=== PATIENT | female | born 1990 | race Caucasian/White ===

== ENCOUNTER 2018-11-02 22:15 | Inpatient (IN) | payer OTHER ==
[2018-11-02] MEDS ORDERED: AMPICILLIN - 2 GM in SODIUM CHLORIDE 100 ML IVPB ONE (22:50)
[2018-11-02] MEDS ORDERED: OXYTOCIN 30 UNITS in 0.9% NS 30 UNIT/500 ML INFUS.BAG IVPB SCH (23:00)
[2018-11-02] MEDS ORDERED: DEXTROSE 5%-LACTATED RINGERS 1,000 ML IV SCH (23:00)
[2018-11-02] MEDS ORDERED: ELECTROLYTE-148 SOLN 1,000 ML IV SCH (23:00)
--- NOTE | 2018-11-02 23:02 | HP ---
Past Medical History - Primary Care Physician PCP:: Doug Almanza - Admission Chief Complaint: 39 weeks, rom, early labor, GBS positve in urine History of Present Illness: 27 yo f g 1 p0 39.4weeks by sono c/o rom at 930 pm today , has mild irregular contraction , no fever, no bleeding , nitrazine positve, cx 2 cm 80 vx -2 mr, fhr cat 1, irregular periods ,difficult pelvic exam , ptient has vginismus and narrow pelvic outlet History Source: Patient, Family Member Limitations to Obtaining History: Language Barrier - Past Medical History ...: 1 ...Para: 0 ... Weeks Gestation by Dates: 39.4 ...EDC by Dates: 11/04/18 ...EDC by Sono: 11/05/18 - Past Surgical History Hx Myomectomy: No Hx Transabdominal Cerclage: No - Smoking History Have you smoked in the past 12 months: No - Alcohol/Substance Use Hx Alcohol Use: No History of Substance Use: reports: None - Social History Usual Living Arrangement: Yes: With Spouse History of Recent Travel: No Home Medications - Allergies Allergies/Adverse Reactions: Allergies Allergy/AdvReac Type Severity Reaction Status Date / Time No Known Allergies Allergy Verified 11/02/18 22:49 - Home Medications Home Medications: Ambulatory Orders Ferrous Sulfate [Feosol] 325 mg PO DAILY 11/02/18 Vit No.129/Iron/Folic [ One Daily Tablet] 1 each PO DAILY 11/02 Review of Systems - Review of Systems Constitutional: reports: No Symptoms Eyes: reports: No Symptoms HENT: reports: No Symptoms Neck: reports: No Symptoms Cardiovascular: reports: No Symptoms Respiratory: reports: No Symptoms Gastrointestinal: reports: No Symptoms Genitourinary: reports: No Symptoms Breasts: reports: No Symptoms Reported Musculoskeletal: reports: No Symptoms Integumentary: reports: No Symptoms Neurological: reports: No Symptoms Endocrine: reports: No Symptoms Hematology/Lymphatic: reports: No Symptoms Psychiatric: reports: No Symptoms Physical Exam - Maternity Constitutional: Yes: Well Nourished, No Distress, Calm Eyes: Yes: WNL, Conjunctiva Clear, EOM Intact HENT: Yes: WNL, Atraumatic, Normocephalic Neck: Yes: WNL, Supple, Trachea Midline Cardiovascular: Yes: WNL, Regular Rate and Rhythm Breast(s): Yes: WNL - Abdominal Exam/OB Fundal Height: 38 Number of Fetuses: Single Presentation: Vertex Contractions: Yes Regularity: Irregular Intensity: Mild/Mod Monitor Mode: External Heart Rate Location: [facility] Category: I Accelerations: Non-Uniform Decelerations: None - Vaginal Exam/OB Vaginal Bleediing: No Speculum Exam: No Dilatation (cm): 2 cm Effacement (%): 80 Amniotic Membrane Status: Ruptured Nitrazine Test: Positive Amniotic Fluid: Yes: Clear Presentation: Vertex/Position Station: -2 - Physical Exam Musculoskeletal: Yes: WNL Extremities: Yes: WNL Edema: LLE: Trace, RLE: Trace Deep Tendon Reflex Grade: Normal +2 ...Motor Strength: WNL Psychiatric: Yes: WNL Hemorrhage Risk Assessment - Risk Factors Medium Risk Factors: Yes: None High Risk Factors: Yes: None Risk Score: 1 Risk Level: Medium Risk Problem List - Problems (1) with 39 completed weeks gestation Code(s): Z3A.39 - 39 WEEKS GESTATION OF (2) membrane rupture Code(s): XVY9437 - (3) Labor established Code(s): [id number] - Assessment/Plan admit fhm requesting epidural GBS prophylaxis has irregular contraction , pitocin risks and benefit discussed
[2018-11-02 23:03] VITALS: BMI 29.1
[2018-11-02] MEDS ORDERED: AMPICILLIN SODIUM 2 GM VIAL ONE (23:05)
[2018-11-02 23:13] LABS: BASO % 0.3 % (0-2.0); EOS % 0.2 % (0-4.5); HEMATOCRIT 34.4 % (32.4-45.2); HEMOGLOBIN 11.4 GM/dL (10.7-15.3); LYMPH % 8.9 % (8-40); MCH 28.6 pg (25.7-33.7); MEAN CELL VOLUME 86.6 fl (80-96); NEUT % 84.6 % (42.8-82.8); PLATELET COUNT 239 K/MM3 (134-434); RBC 3.98 M/mm3 (3.60-5.2); RDW 14.1 % (11.6-15.6)
[2018-11-02 23:21] LABS: INR 0.94 (0.83-1.09); PROTHROMBIN TIME (PATIENT) 11.1 SEC (9.7-13.0)
[2018-11-02 23:24] LABS: ACTIVATED PTT 25.2 SECONDS (25.2-36.5)
[2018-11-02 23:31] LABS: BLOOD UREA NITROGEN 6.3 mg/dL (7-18); CALCIUM 8.9 mg/dL (8.5-10.1); CREATININE 0.6 mg/dL (0.55-1.3); POTASSIUM 4.3 mmol/L (3.5-5.1)
[2018-11-02] MEDS ORDERED: NALOXONE HCL 0.4 MG/ML VIAL IVPUSH PRN (23:44)
[2018-11-02] MEDS ORDERED: FENTANYL/BUPIVACAINE/NS/PF - PCEA - 50 ML DISP.SYRIN EP SCH (23:45)
[2018-11-03] MEDS ORDERED: FENTANYL/BUPIVACAINE/NS/PF - PCEA - 50 ML DISP.SYRIN EP ONE (00:13)
[2018-11-03] MEDS ORDERED: LIDO 2%/EPI 1:200000 PRESRVFRE (20 ML SDVIAL) ONE ×2 (00:19→02:37)
[2018-11-03] MEDS ORDERED: CITRIC ACID/SODIUM CITRATE 30 ML UNIT-DOSE CUP PO ONE (02:28)
--- NOTE | 2018-11-03 02:28 | PN ---
Progress Note (short form) - Note Progress Note: cx 3 cm 80 vz -1, recurrent deep variable with contraction, btbv good , cat 2 tracing, advised c/c. risks discussed oxytocin never stated , lt side, o2. iv fluid Problem List - Problems (1) with 39 completed weeks gestation Code(s): Z3A.39 - 39 WEEKS GESTATION OF (2) membrane rupture Code(s): [id number] - (3) Labor established Code(s): [id number] -
[2018-11-03] MEDS ORDERED: KETOROLAC TROMETHAMINE 30 MG/1 ML VIAL ONE (02:58)
[2018-11-03] MEDS ORDERED: AMPICILLIN - 1 GM in SODIUM CHLORIDE 100 ML IVPB SCH (03:00)
[2018-11-03] MEDS ORDERED: ceFAZolin SODIUM 1 GM VIAL ONE (03:06)
[2018-11-03] MEDS ORDERED: MIDAZOLAM HCL 2 MG/2 ML SINGLE DOSE VIAL ONE (03:06)
[2018-11-03] MEDS ORDERED: SODIUM CHLORIDE 0.9% P/F 10 ML VIAL IJ ONE (03:06)
[2018-11-03] MEDS ORDERED: PROPOFOL 20 ML ONE ×2 (03:09→03:19)
[2018-11-03] MEDS ORDERED: WITCH HAZEL 50% (TUCKS) 40 PAD/JAR PAD TP PRN (03:43)
[2018-11-03] MEDS ORDERED: METHYLERGONOVINE MALEATE 0.2 MG/1 ML AMP IM PRN (03:43)
[2018-11-03] MEDS ORDERED: BENZOCAINE 20% 57 GM BOTTLE TP PRN (03:43)
[2018-11-03] MEDS ORDERED: diphenhydrAMINE HCL 25 MG CAPSULE (FP) PO PRN (03:43)
[2018-11-03] MEDS ORDERED: oxyCODONE HCL 5 MG TABLET PO PRN (03:43)
[2018-11-03] MEDS ORDERED: BENZOCAINE 28 GM HEMORRHOIDAL OINTMENT PR PRN (03:43)
[2018-11-03] MEDS ORDERED: OXYTOCIN 20 UNITS in 0.9% NS 20 UNIT/1,000 ML INFUS.BAG IV SCH (03:45)
--- NOTE | 2018-11-03 03:48 | OP ---
Operative Note - Note: Operative Date: 11/03/18 Pre-Operative Diagnosis: non reassuring FHR Operation: primary LST c/s Findings: live baby boy, rop, 10/29 Surgeon: Doug Almanza Parachute Rigger: Malachi Badillo Anesthesia: Epidural Specimens Removed: placenta Estimated Blood Loss (mls): 500 Drains & Tubes with Location: chamorro Blood Volume Replaced (mls): 0 Operative Report Dictated: Yes
[2018-11-03] MEDS ORDERED: ONDANSETRON 4 MG/2 ML VIAL IVPUSH PRN (04:04)
[2018-11-03] MEDS ORDERED: MEPERIDINE HCL 25 MG/ML VIAL IVPUSH PRN (04:05)
[2018-11-03] MEDS: CEFAZOLIN 1 GM/D5W 1 GM/50 ML BAG IVPB SCH ×2 (09:14→17:14)
--- NOTE | 2018-11-03 09:58 | OP ---
DATE OF OPERATION: 11/03/2018 PREOPERATIVE DIAGNOSIS: Nonreassuring heart rate. POSTOPERATIVE DIAGNOSIS: Nonreassuring heart rate. PROCEDURE: Primary low segment transverse section. SURGEON: Isidoro Almanza MD GRANTS DIRECTOR: EMRE Woodall ANESTHESIA: Epidural. ANESTHESIOLOGIST: Jeremias Lin MD ESTIMATED BLOOD LOSS: 500 mL. FINDINGS: A live baby. Apgars 9, 9. ROP position. DESCRIPTION OF PROCEDURE: Patient was taken to the operating room under adequate epidural anesthesia. Abdomen and perineum were prepped and draped. Pfannenstiel abdominal skin incision was made. Abdominal wall was cut layer by layer until the peritoneum was exposed and incised. Upon entering the abdominal cavity, lower uterine segment was identified, and uterovesical fold of peritoneum established. Bladder was pushed down. Then with the lower blade of the Tamika retractor in the pelvis, a low transverse uterine incision was made. Incision extended laterally with bandage scissors. Amniotic sac was entered. Clear fluid. Head delivered from right occiput posterior position. Nasopharynx was suctioned, and live baby was delivered without any difficulty. Apgars 9, 9. Placenta was delivered manually. Uterine cavity was cleaned of all remaining tissue. Uterine incision was closed in 2 layers, the 1st layer with 0 Biosyn continuous suture, the 2nd layer with 0 Biosyn imbricating the 1st layer. Bladder flap was closed with 0 Biosyn continuous suture. Both tubes and ovaries were checked, normal. No active bleeding was seen. All of the lap pad, sponge, and instrument counts were correct. Then peritoneum was closed with 0 Biosyn continuous suture. Muscles were brought together with interrupted sutures of 0 Biosyn. Fascia was closed with 0 Biosyn continuous suture, subcutaneous fat interrupted suture of 0 Biosyn, and the skin was closed with 3-0 Vicryl, subcuticular continuous suture. Patient tolerated the procedure well, left the OR in good condition. ISIDORO ALMANZA M.D. [id number]
[2018-11-03] MEDS: IBUPROFEN 800 MG/8 ML IJ IVPB PRN ×2 (12:23→19:26)
--- NOTE | 2018-11-03 17:25 | PN ---
Progress Note, Physician Chief Complaint: s/p c section under spinal anesthesia History of Present Illness: intrathecal duramorph for post op pain control - Current Medication List Current Medications: Active Medications Acetaminophen (Tylenol -) 650 mg PO Q4H PRN PRN Reason: PAIN LEVEL 1-5 Benzocaine (Americaine 20% [place] -) 1 spray TP PRN PRN PRN Reason: Pain - Topical Benzocaine (Americaine Ointment -) 1 applic CA PRN PRN PRN Reason: Pain - Topical Bisacodyl (Dulcolax Suppository -) 10 mg RC PRN PRN PRN Reason: CONSTIPATION Diphenhydramine HCl (Benadryl -) 25 mg PO Q8H PRN PRN Reason: FOR ITCHING Diphenhydramine HCl (Benadryl Injection -) 25 mg IVPUSH Q4H PRN PRN Reason: Pruritis Enoxaparin Sodium (Lovenox -) 80 mg SQ DAILY SHAYY Cefazolin Sodium (Ancef 1 Gm Premixed Ivpb -) 1 gm in 50 mls @ 100 mls/hr IVPB Q8H-IV SHAYY Stop: 11/03/18 18:29 Last Admin: 11/03/18 17:14 Dose: 100 mls/hr Dextrose/Lactated Ringer's (D5-Lr -) 1,000 mls @ 125 mls/hr IV ASDIR SHAYY Ibuprofen (Motrin -) 600 mg PO Q4H PRN PRN Reason: PAIN LEVEL 1 - 3 Ibuprofen (Caldolor Injection -) 800 mg IVPB Q6H PRN PRN Reason: PAIN > 5 if PO not effective. Last Admin: 11/03/18 12:23 Dose: 800 mg Meperidine HCl (Meperidine 25 Mg/Ml Vial) 25 mg IVPUSH ONCE PRN PRN Reason: PAIN LEVEL 1-5 Stop: 11/04/18 04:04 Methylergonovine Maleate (Methergine Injection -) 0.2 mg IM Q4H PRN PRN Reason: EXCESSIVE BLEEDING Ondansetron HCl (Zofran Injection) 4 mg IVPUSH Q4H PRN PRN Reason: NAUSEA Oxycodone HCl (Roxicodone -) 5 mg PO Q4H PRN PRN Reason: PAIN LEVEL 4 - 6 Oxycodone HCl (Roxicodone -) 10 mg PO Q4H PRN PRN Reason: PAIN LEVEL 7 - 10 Senna/Docusate Sodium (Pericolace -) 2 tablet PO HS PRN PRN Reason: CONSTIPATION Simethicone (Mylicon -) 80 mg PO Q4H PRN PRN Reason: GAS Witch Orly/Glycerin (Tucks Pads -) 1 pad TP PRN PRN PRN Reason: Pain - Topical - Objective Vital Signs: Vital Signs Temperature 98.2 F 11/03/18 14:00 Pulse Rate 88 11/03/18 14:00 Respiratory Rate 18 11/03/18 15:00 Blood Pressure 108/54 L 11/03/18 14:00 O2 Sat by Pulse Oximetry (%) 100 11/03/18 05:30 Constitutional: Yes: Well Nourished Cardiovascular: Yes: WNL Respiratory: Yes: WNL Gastrointestinal: Yes: WNL Labs: CBC, BMP 11/02/18 22:46 11/02/18 22:46 INR, PTT INR 0.94 (0.83-1.09) 11/02/18 22:46 Assessment/Plan No adverse anesthetic complications, pain controlled, dept of anesthesiology will sign off care at this time
[2018-11-04] MEDS: IBUPROFEN 800 MG/8 ML IJ IVPB PRN (00:56)
[2018-11-04] MEDS ORDERED: BISACODYL 10 MG SUPP.RECT RC PRN (03:43)
[2018-11-04 07:44] LABS: BASO % 0.3 % (0-2.0); EOS % 0.6 % (0-4.5); HEMATOCRIT 30.3 % (32.4-45.2); LYMPH % 12.3 % (8-40); MCH 28.7 pg (25.7-33.7); MCHC 32.8 g/dl (32.0-36.0); MEAN CELL VOLUME 87.3 fl (80-96); MEAN PLT VOLUME 8.4 fl (7.5-11.1); MONO % 6.9 % (3.8-10.2); NEUT % 79.9 % (42.8-82.8); PLATELET COUNT 206 K/MM3 (134-434); RBC 3.47 M/mm3 (3.60-5.2); RDW 14.5 % (11.6-15.6); WHITE BLOOD COUNT 12.2 K/mm3 (4.0-10.0)
[2018-11-04] MEDS: IBUPROFEN 600 MG TABLET (FP) PO PRN ×3 (08:14→17:59)
[2018-11-04] MEDS: ACETAMINOPHEN 325 MG TABLET (FP) PO PRN ×4 (08:15→22:32)
[2018-11-04] MEDS ORDERED: ENOXAPARIN NA (PORCINE) 80 MG/0.8 ML DISP.SYRIN SQ SCH (10:00)
[2018-11-04] MEDS: ENOXAPARIN NA (PORCINE) 40 MG/0.4 ML DISP.SYRIN SQ SCH (10:26)
[2018-11-04] MEDS: SIMETHICONE 80 MG TAB.CHEW (FP) PO PRN ×2 (12:32→22:32)
--- NOTE | 2018-11-04 19:11 | PN ---
Progress Note (short form) - Note Progress Note: pod 1 s/p c/s doing well, sitting on chair , ambulates CBC, BMP 11/04/18 05:47 11/02/18 22:46 Last Vital Signs Temp Pulse Resp BP Pulse Ox 97.9 F 84 18 105/65 100 11/04/18 09:17 11/04/18 15:24 11/04/18 15:24 11/04/18 15:24 11/03/18 05:30 abdomen soft, no distension, no cva incision dry, clean no calf tenderness plan ambulate , advance diet Problem List - Problems (1) with 39 completed weeks gestation Code(s): Z3A.39 - 39 WEEKS GESTATION OF (2) membrane rupture Code(s): [id number] - (3) Labor established Code(s): [id number] -
[2018-11-05] MEDS: DEXTROSE 5%-LACTATED RINGERS 1,000 ML IV SCH (01:50)
[2018-11-05] MEDS: oxyCODONE HCL 5 MG TABLET PO PRN ×2 (01:57→20:38)
[2018-11-05] MEDS: ACETAMINOPHEN 325 MG TABLET (FP) PO PRN ×5 (01:58→20:39)
[2018-11-05] MEDS: IBUPROFEN 600 MG TABLET (FP) PO PRN ×4 (01:58→17:07)
[2018-11-05] MEDS: SIMETHICONE 80 MG TAB.CHEW (FP) PO PRN ×4 (01:59→17:08)
[2018-11-05 08:46] LABS: POC NITRAZINE POS
--- NOTE | 2018-11-05 08:59 | PN ---
Progress Note (short form) - Note Progress Note: pod 2 s/p primary LST c/s , passing gas , ambulating CBC, BMP 11/04/18 05:47 11/02/18 22:46 Last Vital Signs Temp Pulse Resp BP Pulse Ox 98.1 F 72 18 119/70 100 11/05/18 07:15 11/05/18 07:15 11/05/18 07:15 11/05/18 07:15 11/03/18 05:30 abdomen soft, no distension, no cva , BS present incision dry, clean , no discharge no calf tenderness no excess vaginal bleeding plan ambulate, cbc in am pain management Problem List - Problems (1) with 39 completed weeks gestation Code(s): Z3A.39 - 39 WEEKS GESTATION OF (2) membrane rupture Code(s): [id number] - (3) Labor established Code(s): [id number] -
[2018-11-05] MEDS: ENOXAPARIN NA (PORCINE) 40 MG/0.4 ML DISP.SYRIN SQ SCH (09:00)
[2018-11-05] MEDS ORDERED: SENNOSIDES/DOCUSATE COMBO (SENNA PLUS) TABLET (UD) PO PRN (22:00)
[2018-11-06] MEDS: ACETAMINOPHEN 325 MG TABLET (FP) PO PRN ×2 (02:31→08:02)
[2018-11-06] MEDS: SIMETHICONE 80 MG TAB.CHEW (FP) PO PRN ×2 (02:31→08:03)
[2018-11-06] MEDS: oxyCODONE HCL 5 MG TABLET PO PRN (02:32)
[2018-11-06] MEDS: IBUPROFEN 600 MG TABLET (FP) PO PRN ×2 (02:32→08:01)
--- NOTE | 2018-11-06 07:27 | DS ---
Physical Examination Vital Signs: Vital Signs Temperature 97.8 F 11/05/18 22:00 Pulse Rate 82 11/05/18 22:00 Respiratory Rate 18 11/05/18 22:00 Blood Pressure 97/60 11/05/18 22:00 O2 Sat by Pulse Oximetry (%) 100 11/03/18 05:30 Findings/Remarks: Ambulating, tolerating PO, lochia decreased, voiding Constitutional: Yes: Calm Eyes: Yes: WNL HENT: Yes: Atraumatic, Normocephalic Neck: Yes: Supple Cardiovascular: Yes: Regular Rate and Rhythm Respiratory: Yes: Regular Gastrointestinal: Yes: WNL, Soft, Other (incsion closed and sutures in place) Renal/: Yes: Other (deferred) Breast(s): Yes: Other (deferred) Musculoskeletal: Yes: WNL Extremities: Yes: WNL Edema: Yes Edema: LLE: 1+, RLE: 1+ Integumentary: Yes: WNL Wound/Incision: Yes: Clean/Dry, Well Approximated, Sutures Intact Neurological: Yes: Alert, Oriented ...Motor Strength: WNL Psychiatric: Yes: Alert, Oriented Labs: CBC, BMP 11/04/18 05:47 11/02/18 22:46 Discharge Summary Reason For Visit: LABOR Current Active Problems membrane rupture (Acute) Labor established (Acute) with 39 completed weeks gestation (Acute) Procedures: Principal: PLTCS Hospital Course: PLTCS and uncomplicated recovery Condition: Stable - Instructions Diet, Activity, Other Instructions: Please follow up in 1 week at health center, call MD with any questions or concerns. Referrals: Doug Almanza MD [Staff Physician] - Disposition: HOME - Home Medications Comprehensive Discharge Medication List: Ambulatory Orders Ferrous Sulfate [Feosol] 325 mg PO DAILY 11/02/18 Vit No.129/Iron/Folic [ One Daily Tablet] 1 each PO DAILY 11/02 Ibuprofen 600 mg PO Q6H PRN #30 tablet 11/06/18 Oxycodone HCl/Acetaminophen [Percocet 5-325 mg Tablet -] 1 tab PO Q6H PRN #14 tab MDD 5 11/06/18
[2018-11-06 08:24] LABS: BASO % 0.5 % (0-2.0); EOS % 1.6 % (0-4.5); HEMATOCRIT 28.8 % (32.4-45.2); HEMOGLOBIN 9.6 GM/dL (10.7-15.3); LYMPH % 24.6 % (8-40); MCH 29.2 pg (25.7-33.7); MCHC 33.3 g/dl (32.0-36.0); MEAN CELL VOLUME 87.7 fl (80-96); MEAN PLT VOLUME 8.5 fl (7.5-11.1); MONO % 7.2 % (3.8-10.2); NEUT % 66.1 % (42.8-82.8); PLATELET COUNT 236 K/MM3 (134-434); RBC 3.28 M/mm3 (3.60-5.2); RDW 14.5 % (11.6-15.6); WHITE BLOOD COUNT 8.2 K/mm3 (4.0-10.0)
[2018-11-06 09:00] VITALS: BP 95/56; PULSE 72; TEMP 98.3
[2018-11-06] MEDS: ENOXAPARIN NA (PORCINE) 40 MG/0.4 ML DISP.SYRIN SQ SCH (09:34)
--- NOTE | 2018-11-06 17:25 | PATH ---
Surgical Pathology Report Patient Name: SAMANTHA ARANA [facility]. Rec. 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 Specimen(s) Received PLACENTA Clinical History history of PCOS Final Diagnosis PLACENTA: THIRD TRIMESTER PLACENTA. TRIVASCULAR CORD. MEMBRANES WITH NO DIAGNOSTIC ABNORMALITIES. Electronically Signed Jona Hawkins M.D. Gross Description The specimen is received fresh labeled placenta and is a 442 gram, 17 x15 x 3.1cm. placenta with attached membranes and umbilical cord. The attached membranes are glistening, translucent, and insert marginally. The umbilical cord measures 15 cm. in length and averages 1.3 cm. in diameter. The cord inserts centrally, 4 centimeter to the nearest margin. No true knots or strictures are identified. Cut surface of the umbilical cord reveals 3 vessels. Sectioning reveals red-brown, spongy parenchyma. No lesions are identified. Grocery Checker sections are submitted in three cassettes as follows: 1- membrane rolls and umbilical cord; 2-3- full thickness sections of placenta KWS/11/06/2018 landonki/11/06/2018
== END 2018-11-06 13:30 | disposition home or self-care (01) | DRG 540 ==
LOC: JLDR 22:15 → J3W 11-03 05:50
PROVIDERS: ADMIT Obstetrics & Gynecology; ATTEND Obstetrics & Gynecology
PROC: 10D00Z1 Extraction of Products of Conception, Low, Open Approach (ICD-10-PCS; principal; 2018-11-03)
DX: O76 Abnormality in fetal heart rate and rhythm complicating labor and delivery (principal); Z3A.39 39 weeks gestation of pregnancy; Z37.0 Single live birth
CPT/HCPCS: 36415; 36600; 80048; 82803; 83986-QW; 85025; 85610; 85730; 86593; 86850; 86900; 86901; 88307-TC

== ENCOUNTER 2020-12-02 05:50 | Inpatient (IN) | payer OTHER ==
[2020-12-02] MEDS ORDERED: CITRIC ACID/SODIUM CITRATE 30 ML UNIT-DOSE CUP PO ONE (06:15)
[2020-12-02] MEDS ORDERED: ELECTROLYTE-148 SOLN 500 ML IV ONE ×2 (06:15→06:57)
[2020-12-02 06:45] VITALS: BMI 33.4
[2020-12-02] MEDS ORDERED: ELECTROLYTE-148 SOLN 1,000 ML IV SCH (07:00)
[2020-12-02] MEDS: ELECTROLYTE-148 SOLN 1,000 ML IV SCH (07:10)
[2020-12-02 07:24] LABS: HEPATITIS B SURFACE AG MATERN NON-REACTIVE (NONREACTIVE)
[2020-12-02 07:25] LABS: SYPHILIS W/ RPR CONF NON-REACTIVE (NONREACTIVE)
[2020-12-02] MEDS ORDERED: ONDANSETRON 4 MG/2 ML VIAL IVPUSH PRN (07:51)
[2020-12-02] MEDS ORDERED: OXYTOCIN 20 UNITS in 0.9% NS 20 UNIT/1,000 ML INFUS.BAG IV ONE ×2 (08:07→10:14)
[2020-12-02] MEDS ORDERED: morphine SULFATE (PF) 1 MG/2 ML SYRINGE ONE (08:12)
[2020-12-02] MEDS ORDERED: ePHEDrine SULFATE 50 MG/1 ML AMPULE ONE (08:12)
[2020-12-02] MEDS ORDERED: ceFAZolin SODIUM 1 GM VIAL ONE ×2 (08:26→15:58)
[2020-12-02] MEDS ORDERED: PHENYLEPHRINE HCL 10 MG/1 ML SINGLE DOSE VIAL ONE (08:34)
[2020-12-02] MEDS ORDERED: ONDANSETRON 4 MG/2 ML VIAL ONE (08:43)
[2020-12-02 09:40] LABS: CORD BASE EXCESS -1.6 mmol/L (0-2); CORD HCO3 24.7 mmHg (20-29); CORD HCO3 26.4 mmHg (20-29); CORD PCO2 47.4 mmHg (30-78); CORD PCO2 63.6 mmHg (30-78); CORD pH 7.236 (7.14-7.44); CORD pH 7.335 (7.14-7.44)
[2020-12-02] MEDS ORDERED: METHYLERGONOVINE MALEATE 0.2 MG/1 ML AMP IM PRN (09:40)
[2020-12-02] MEDS ORDERED: CEFAZOLIN 1 GM/D5W 1 GM/50 ML BAG IVPB SCH (10:00)
[2020-12-02] MEDS ORDERED: IBUPROFEN 800 MG/8 ML IJ IVPB ONE (10:10)
[2020-12-02] MEDS: IBUPROFEN 800 MG/8 ML IJ IVPB PRN ×2 (10:15→20:13)
[2020-12-02] MEDS ORDERED: OXYTOCIN 20 UNITS in 0.9% NS 20 UNIT/1,000 ML INFUS.BAG IV SCH (10:30)
[2020-12-02] MEDS ORDERED: DEXTROSE 5%-WATER - 50 ML IVPB ONE (15:58)
[2020-12-02] MEDS: CEFAZOLIN 1 GM in DEXTROSE 5%-WATER - 1 GM/50 ML IVPB IVPB SCH (16:15)
[2020-12-03] MEDS ORDERED: DEXTROSE 5%-WATER - 50 ML IVPB ONE ×2 (00:50→09:20)
[2020-12-03] MEDS ORDERED: ceFAZolin SODIUM 1 GM VIAL ONE ×2 (00:50→09:20)
[2020-12-03] MEDS: CEFAZOLIN 1 GM in DEXTROSE 5%-WATER - 1 GM/50 ML IVPB IVPB SCH ×2 (00:56→09:21)
[2020-12-03] MEDS: IBUPROFEN 600 MG TABLET (FP) PO PRN ×2 (03:30→20:02)
[2020-12-03 07:16] LABS: BASO % 0.3 % (0-2.0); EOS % 0.7 % (0-4.5); HEMOGLOBIN 10.8 GM/dL (10.7-15.3); LYMPH % 7.8 % (8-40); MCH 29.1 pg (25.7-33.7); MCHC 33.8 g/dl (32.0-36.0); MEAN CELL VOLUME 86.2 fl (80-96); MEAN PLT VOLUME 7.9 fl (7.5-11.1); MONO % 6.2 % (3.8-10.2); PLATELET COUNT 216 10^3/uL (134-434); RBC 3.71 M/mm3 (3.60-5.2); RDW 14.2 % (11.6-15.6); WHITE BLOOD COUNT 12.5 K/mm3 (4.0-10.0)
[2020-12-03] MEDS: ACETAMINOPHEN 325 MG TABLET (FP) PO PRN (09:18)
[2020-12-03] MEDS: SIMETHICONE 80 MG TAB.CHEW (FP) PO PRN ×2 (09:19→18:15)
[2020-12-03] MEDS: ENOXAPARIN NA (PORCINE) 40 MG/0.4 ML DISP.SYRIN SQ SCH (09:19)
[2020-12-03] MEDS: PRENATAL VITAMINS W/ FOLIC ACID TABLET (FP) PO SCH (09:19)
[2020-12-03] MEDS ORDERED: BISACODYL 10 MG SUPP.RECT RC PRN (09:40)
[2020-12-03] MEDS: oxyCODONE HCL 5 MG TABLET PO PRN ×2 (12:09→18:15)
[2020-12-03] MEDS: SENNOSIDES/DOCUSATE COMBO (SENNA PLUS) TABLET (UD) PO PRN (21:17)
[2020-12-03] MEDS: FERROUS SO4 325 MG TABLET (FP) PO SCH (21:17)
[2020-12-04] MEDS: SIMETHICONE 80 MG TAB.CHEW (FP) PO PRN ×3 (00:47→20:30)
[2020-12-04] MEDS: IBUPROFEN 600 MG TABLET (FP) PO PRN ×4 (00:47→20:31)
[2020-12-04] MEDS: FERROUS SO4 325 MG TABLET (FP) PO SCH ×2 (09:08→21:46)
[2020-12-04] MEDS: PRENATAL VITAMINS W/ FOLIC ACID TABLET (FP) PO SCH (09:08)
[2020-12-04] MEDS: ENOXAPARIN NA (PORCINE) 40 MG/0.4 ML DISP.SYRIN SQ SCH (09:09)
[2020-12-04] MEDS: ACETAMINOPHEN 325 MG TABLET (FP) PO PRN (18:13)
[2020-12-04] MEDS: SENNOSIDES/DOCUSATE COMBO (SENNA PLUS) TABLET (UD) PO PRN (20:31)
[2020-12-05] MEDS: ACETAMINOPHEN 325 MG TABLET (FP) PO PRN (02:18)
[2020-12-05] MEDS: SIMETHICONE 80 MG TAB.CHEW (FP) PO PRN ×2 (02:18→10:02)
[2020-12-05 05:50] LABS: BASO % 0.6 % (0-2.0); HEMATOCRIT 30.4 % (32.4-45.2); HEMOGLOBIN 10.3 GM/dL (10.7-15.3); LYMPH % 26.7 % (8-40); MCH 29.7 pg (25.7-33.7); MEAN CELL VOLUME 87.6 fl (80-96); MEAN PLT VOLUME 7.9 fl (7.5-11.1); MONO % 7.3 % (3.8-10.2); NEUT % 63.4 % (42.8-82.8); PLATELET COUNT 245 10^3/uL (134-434); RBC 3.47 M/mm3 (3.60-5.2); RDW 14.1 % (11.6-15.6); WHITE BLOOD COUNT 7.7 K/mm3 (4.0-10.0)
[2020-12-05] MEDS: ELECTROLYTE-148 SOLN 1,000 ML IV SCH (07:31)
[2020-12-05] MEDS: PRENATAL VITAMINS W/ FOLIC ACID TABLET (FP) PO SCH (10:02)
[2020-12-05] MEDS: IBUPROFEN 600 MG TABLET (FP) PO PRN (10:02)
[2020-12-05] MEDS: FERROUS SO4 325 MG TABLET (FP) PO SCH (10:02)
[2020-12-05] MEDS: ENOXAPARIN NA (PORCINE) 40 MG/0.4 ML DISP.SYRIN SQ SCH (10:03)
[2020-12-05 10:36] VITALS: BP 94/61; PULSE 91; TEMP 98.1
== END 2020-12-05 14:50 | disposition home or self-care (01) | DRG 540 ==
LOC: JLDR 05:50 → J3W 10:40
PROVIDERS: ADMIT Obstetrics & Gynecology; ATTEND Obstetrics & Gynecology
PROC: 10D00Z1 Extraction of Products of Conception, Low, Open Approach (ICD-10-PCS; principal; 2020-12-02)
DX: O34.219 Maternal care for unspecified type scar from previous cesarean delivery (principal); Z3A.39 39 weeks gestation of pregnancy; Z37.0 Single live birth
CPT/HCPCS: 36415; 36600; 80053; 82803; 85025; 85610; 86762; 86780; 86850; 86900; 86901; 87340; 88307-TC; C9803; U0003; U0005